=== PATIENT | female | born 1965 | race Caucasian/White ===

== ENCOUNTER → 2016-08-23 | Outpatient (CLI) | payer BC | LOC: MW.CHFP 12:58 | PROVIDERS: ATTEND Physician Assistant | DX: E03.9 Hypothyroidism, unspecified (principal); N89.8 Other specified noninflammatory disorders of vagina | CPT/HCPCS: 36415; 84443; 87480; 87510; 87660; G0145 ==

== ENCOUNTER → 2016-08-25 | Outpatient (CLI) | payer BC ==
--- NOTE | 2016-08-25 10:52 | MY ---
EXAMINATION: Bilateral digital mammography utilizing CAD. HISTORY: Screening exam. Comparison is made to previous studies dated 08/28/2014, 04/30/2013. FINDINGS: Bilateral heterogeneously dense breast tissue. No suspicious calcifications, masses or architectural distortions. No pathologic appearing lymph nodes, no abnormal skin thickening or nip ple inversion. CAD highlighted regions appear normal at this time. IMPRESSION: BI-RADS category I - negative mammogram. Continued screening according to ACR-ACS gu idelines suggested. THE FALSE-NEGATIVE RATE OF MAMMOGRAM IS APPROXIMATELY 10%. MANAGEMENT OF A PALPABLE ABNORMALITY MUS T BE BASED UPON CLINICAL GROUNDS. SENSITIVITY FOR DETECTION OF ABNORMALITIES IN DENSE BREASTS IS LOW . NOTE: A letter will be sent to the patient regarding findings. [facility] -- MAYRA Mckeon [phone] - FAX [phone]
== END ==
LOC: MW.MAM 08:30
PROVIDERS: ATTEND Physician Assistant
DX: Z12.31 Encounter for screening mammogram for malignant neoplasm of breast (principal)
CPT/HCPCS: G0202; G0202-26

== ENCOUNTER → 2016-09-05 | Outpatient (CLI) | payer BC | LOC: MW.CHFP 11:44 | PROVIDERS: ATTEND Student in an Organized Health Care Education/Training Program | DX: R07.9 Chest pain, unspecified (principal) | CPT/HCPCS: 93005 ==

== ENCOUNTER 2018-11-16 06:16 | Day surgery (SDC) | payer BC ==
[~2018-11-16 06:16] MED LIST: Lactated Ringers 1,000 ML IV SCH; ceFAZolin 2 GM in Premix Bag 1 BAG IV ONE
[2018-11-16] MEDS ORDERED: Propofol 200 MG/20 ML SDV ONE ×2 (07:17→07:23)
[2018-11-16] MEDS ORDERED: fentaNYL 100 MCG/2 ML SDV ONE ×3 (07:17→09:59)
[2018-11-16] MEDS ORDERED: Ondansetron 4 MG/2 ML SDV ONE (07:17)
[2018-11-16] MEDS ORDERED: Midazolam 1 MG/ML 2 ML SDV ONE (07:17)
[2018-11-16] MEDS ORDERED: Ketorolac 30 MG/ML SDV ONE (07:18)
[2018-11-16] MEDS ORDERED: Glycopyrrolate 0.2 MG/ML SDV ONE (07:18)
[2018-11-16] MEDS ORDERED: Rocuronium 100 MG/10 ML MDV ONE (07:19)
[2018-11-16] MEDS ORDERED: Bupivacaine 25%/EPINEPHrine/PF 30 ML ONE (07:23)
[2018-11-16] MEDS ORDERED: Morphine 10 MG/ML Syringe ONE (07:25)
[2018-11-16] MEDS ORDERED: Sugammadex Sodium 200 MG/2 ML VIAL ONE (07:28)
[2018-11-16] MEDS ORDERED: Scopolamine 1.5 MG Transdermal Patch TRDERM PRN (07:33)
--- NOTE | 2018-11-16 07:33 | PCM.PREANE ---
Preanesthetic Assessment - Anesthesia/Transfusion/Family Hx Anesthesia History: Prior Anesthesia Reaction Other Type of Anesthesia Reaction Comment: "almost passed out" when tourniquet released after renetta block Family History of Anesthesia Reaction: No Transfusion History: No Prior Transfusion(s) Intubation History: Unknown - Review of Systems General: No Symptoms Pulmonary: No Symptoms Cardiovascular: No Symptoms Gastrointestinal: No Symptoms Neurological: No Symptoms Other: Reports: None - Physical Assessment O2 Sat by Pulse Oximetry: 96 Respiratory Rate: 16 Vital Signs: Last Vital Signs Temp 37.3 C 11/16/18 07:19 Pulse 93 11/16/18 07:19 Resp 16 11/16/18 07:19 BP 132/81 11/16/18 07:19 Pulse Ox 96 11/16/18 07:19 Height: 5 ft 7 in Weight: 88.904 kg ASA Class: 2 Mental Status: Alert & Oriented x3 Airway Class: Mallampati = 2 Dentition: Reports: Normal Dentition Thyro-Mental Finger Breadths: 3 Mouth Opening Finger Breadths: 2 ROM/Head Extension: Full Lungs: Clear to Auscultation, Normal Respiratory Effort Cardiovascular: Regular Rate, Regular Rhythm - Lab Values: Laboratory Last Values Urine HCG, Qual NEGATIVE (NEGATIVE) 11/16/18 06:50 - Allergies Allergies/Adverse Reactions: Allergies Allergy/AdvReac Type Severity Reaction Status Date / Time acetaminophen Allergy Itching Verified 11/16/18 07:18 [From Lorcet (hydrocodone)] hydrocodone Allergy Itching Verified 11/16/18 07:18 [From Lorcet (hydrocodone)] - Blood Blood Available: No - Anesthesia Plan Pre-Op Medication Ordered: None - Acknowledgements Anesthesia Type Planned: General Anesthesia Pt an Appropriate Candidate for the Planned Anesthesia: Yes Alternatives and Risks of Anesthesia Discussed w Pt/Guardian: Yes Pt/Guardian Understands and Agrees with Anesthesia Plan: Yes PreAnesthesia Questionnaire HEENT History: Reports: Other (See Below) Other HEENT History: wears glasses Gastrointestinal History: Reports: Cholelithiasis, GERD 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: Neurological History: Reports: Headaches, Chronic Psychiatric History: Reports: Anxiety, Depression Endocrine/Metabolic History: Reports: Hypothyroidism, Obesity/BMI 30+ - Past Surgical History Female Surgical History: Reports: Section (x1) Musculoskeletal Surgical History: Reports: Ganglion Cyst - SUBSTANCE USE Smoking Status *Q: Never Smoker Recreational Drug Use History: No - HOME MEDS Home Medications: Home Meds Levothyroxine Sodium [Synthroid] 75 mcg PO QAM 11/12/18 [History] Pantoprazole Sodium 40 mg PO QAM 11/12/18 [History] - CURRENT (IN HOUSE) MEDS Current Meds: Current Medications Lactated Ringer's (Ringers, Lactated) 1,000 mls @ 125 mls/hr IV ASDIRECTED OWEN Last Admin: 11/16/18 07:17 Dose: 125 mls/hr Discontinued Medications Fentanyl (Sublimaze) Confirm Administered Dose 100 mcg .ROUTE .STK-MED ONE Stop: 11/16/18 07:18 Fentanyl (Sublimaze) Confirm Administered Dose 100 mcg .ROUTE .STK-MED ONE Stop: 11/16/18 07:26 Glycopyrrolate (Robinul) Confirm Administered Dose 0.2 mg .ROUTE .STK-MED ONE Stop: 11/16/18 07:19 Cefazolin Sodium/Dextrose 2 gm (/ Premix) 50 mls @ 100 mls/hr IV ONETIME ONE Stop: 11/16/18 05:29 Bupivacaine HCl/Epinephrine Bitart (Sensorc Mpf 0.25%-Epi [id number]) Confirm Administered Dose 30 mls @ as directed .ROUTE .STK-MED ONE Stop: 11/16/18 07:24 Ketorolac Tromethamine (Toradol) Confirm Administered Dose 30 mg .ROUTE .STK- MED ONE Stop: 11/16/18 07:19 Midazolam HCl (Versed 1 Mg/Ml) Confirm Administered Dose 2 mg .ROUTE .STK-MED ONE Stop: 11/16/18 07:18 Morphine Sulfate (Morphine) Confirm Administered Dose 10 mg .ROUTE .STK-MED ONE Stop: 11/16/18 07:26 Ondansetron HCl (Zofran) Confirm Administered Dose 4 mg .ROUTE .STK-MED ONE Stop: 11/16/18 07:18 Propofol (Diprivan 20 Ml) Confirm Administered Dose 200 mg .ROUTE .STK-MED ONE Stop: 11/16/18 07:18 Propofol (Diprivan 20 Ml) Confirm Administered Dose 200 mg .ROUTE .STK-MED ONE Stop: 11/16/18 07:24 Rocuronium Kenefic (Zemuron) Confirm Administered Dose 100 mg .ROUTE .STK-MED ONE Stop: 11/16/18 07:20 Sugammadex Sodium (Bridion) Confirm Administered Dose 200 mg .ROUTE .STK-MED ONE Stop: 11/16/18 07:29
[2018-11-16] MEDS ORDERED: Scopolamine 1.5 MG Transdermal Patch ONE (07:34)
[2018-11-16] MEDS ORDERED: Sodium Chloride 0.9% 20 ML ONE (07:45)
[2018-11-16] MEDS ORDERED: ceFAZolin 1 GM Vial ONE (07:45)
[2018-11-16] MEDS ORDERED: Phenylephrine/Normal Saline 100 MCG/ML 10 ML Syringe ONE (09:15)
[2018-11-16] MEDS ORDERED: Octyl 2-Cyanoacrylate 1 Tube ONE (09:23)
[2018-11-16] MEDS ORDERED: Acetaminophen/oxyCODONE 325-5 MG Tab PO PRN (09:38)
--- NOTE | 2018-11-16 09:38 | PCM.OPNOTE ---
- General Post-Op/Procedure Note Date of Surgery/Procedure: 11/16/18 Operative Procedure(s): lap home Findings: severe adherence to surrounding cw chronic cholecystitis; wall is not thickened ; there are stones; [id number] Pre Op Diagnosis: chronic and acute cholecystitis Post-Op Diagnosis: Same Anesthesia Technique: General ET Tube Primary Surgeon: Patrick Campos Pathology: sent Complications: None Condition: Good
[2018-11-16] MEDS ORDERED: Ketorolac 30 MG/ML SDV IVPUSH ONE (09:54)
[2018-11-16] MEDS: fentaNYL 100 MCG/2 ML SDV IVPUSH PRN ×2 (10:00→10:06)
--- NOTE | 2018-11-16 10:22 | PCM.POSTAN ---
POST ANESTHESIA ASSESSMENT - MENTAL STATUS Mental Status: Alert, Oriented - RESPIRATORY Respiratory Status: Respiratory Rate WNL, Airway Patent, O2 Saturation Stable - CARDIOVASCULAR CV Status: Pulse Rate WNL, Blood Pressure Stable - GASTROINTESTINAL GI Status: No Symptoms - PAIN Pain Score: 5 - POST OP HYDRATION Hydration Status: Adequate & Stable - OBSERVATIONS Free Text/Narrative:: No anesthesia problems
--- NOTE | 2018-11-16 12:01 | OR ---
SURGEON: Patrick Campos MD DATE OF PROCEDURE: 11/16/2018 PREOPERATIVE DIAGNOSIS: Acute on chronic cholecystitis. POSTOPERATIVE DIAGNOSIS: Acute on chronic cholecystitis. PROCEDURE PROPOSED: Laparoscopic cholecystectomy. PROCEDURE PERFORMED: Laparoscopic cholecystectomy. PRIMARY SURGEON: Patrick Campos MD. COMPLICATIONS: None. FINDINGS: Gallbladder severely interacting with the surrounding organ, suggests chronicity. Wall is not thickened and there are stones. PROCEDURE NOTE: The patient was taken to the operating room and placed in the supine position. After the intubation of general endotracheal anesthesia, the patient's abdomen was prepped and draped in the usual sterile fashion. Using Admaxim, a 12 mm trocar was placed supraumbilically and then followed with pneumoperitoneum. A 5 mm trocar was placed in the epigastrium and two 5 mm trocars placed in the right upper quadrant. The placement of the last three trocars was done under direct video supervision. Upon gaining entrance to the abdominal cavity, an extensive examination was then performed. The gallbladder was located and identified and retracted to the dome of the liver at the triangle of Calot. The cystic duct was clipped three more times and then using the endoscopic clip, was transected with placement of the endoscopic clip and transection was performed with care, ensuring the posterior prong of the instruments were clearly visualized prior to exercising the procedure. The gallbladder was dissected using electrocautery out of the liver bed and then removed using endoscopic bag through the umbilical site. The gallbladder was removed en bloc and there was no bile spillage and this was then followed with extensive irrigation until the bile was clear from blood and bile. The trocars were then removed under direct video supervision. The 12 mm umbilical site was then closed with deep stitches using 0 Vicryl followed with proximal stitches using 3-0 Vicryl and Dermabond. The other three trocar sites were closed with 3-0 Vicryl followed with approximation of skin with Dermabond. The patient was then awakened and extubated and transferred to the recovery room in hemodynamically stable condition. At the conclusion of the surgery, before closing the abdominal wound, instrument count and sponge count were done and were correct. The patient tolerated the procedure well and there were no intraoperative complications. Dr. Campos was present through the whole procedure. Just before surgery, a timeout was called. The patient was identified and procedure identified and procedure started. Intraoperative findings, as dictated above. LIANS / MODL /[id number]
== END 2018-11-16 13:15 | disposition home or self-care (01) ==
LOC: MW.SDS 06:16
PROVIDERS: ATTEND Surgery
DX: K80.12 Calculus of gallbladder with acute and chronic cholecystitis without obstruction (principal); K21.9 Gastro-esophageal reflux disease without esophagitis; E03.9 Hypothyroidism, unspecified; Z88.5 Allergy status to narcotic agent; Z88.6 Allergy status to analgesic agent; Z79.899 Other long term (current) drug therapy
CPT/HCPCS: 47562; 81025; A9270; J0131; J0690; J1885; J2250; J2270; J2370; J2405; J2704; J3010; J3490; J7120; 00790

== ENCOUNTER 2020-06-30 09:53 | Day surgery (SDC) | payer BC ==
[~2020-06-30 09:53] MED LIST changes: +Glycopyrrolate 0.2 MG/ML SDV ONE; +Lidocaine 2% 5 ML SDV ONE; +Midazolam 1 MG/ML 2 ML SDV ONE; +Propofol 200 MG/20 ML SDV ONE; +Sodium Chloride 0.9% 10 ML SDV IV PRN; +Sodium Chloride 0.9% 10 ML Syringe FLUSH PRN; +Sodium Chloride 0.9% 2.5 ML Syringe FLUSH PRN; -ceFAZolin 2 GM in Premix Bag 1 BAG IV ONE
--- NOTE | 2020-06-30 10:31 | PCM.PREANE ---
Preanesthetic Assessment - Anesthesia/Transfusion/Family Hx Anesthesia History: Prior Anesthesia Reaction Other Type of Anesthesia Reaction Comment: "almost passed out" when tourniquet released after renetta block Family History of Anesthesia Reaction: No Transfusion History: No Prior Transfusion(s) Intubation History: Unknown - Review of Systems General: No Symptoms Pulmonary: No Symptoms Cardiovascular: No Symptoms Gastrointestinal: Abdominal Pain, Diarrhea Neurological: No Symptoms Other: Reports: None - Physical Assessment Vital Signs: Last Vital Signs Temp 36.4 C 06/30/20 10:04 Pulse 94 06/30/20 10:04 Resp 15 06/30/20 10:04 BP 127/82 06/30/20 10:04 Pulse Ox 99 06/30/20 10:04 Height: 5 ft 8 in Weight: 87.997 kg ASA Class: 2 Mental Status: Alert & Oriented x3 Airway Class: Mallampati = 2 Dentition: Reports: Normal Dentition Thyro-Mental Finger Breadths: 3 Mouth Opening Finger Breadths: 3 ROM/Head Extension: Full Lungs: Clear to Auscultation, Normal Respiratory Effort Cardiovascular: Regular Rate, Regular Rhythm - Lab Values: Laboratory Last Values Urine HCG, Qual NEGATIVE (NEGATIVE) 06/30/20 10:00 - Allergies Allergies/Adverse Reactions: Allergies Allergy/AdvReac Type Severity Reaction Status Date / Time acetaminophen Allergy Itching Verified 06/25/20 09:37 [From Lorcet (hydrocodone)] hydrocodone Allergy Itching Verified 06/25/20 09:37 [From Lorcet (hydrocodone)] - Blood Blood Available: No - Anesthesia Plan Pre-Op Medication Ordered: None - Acknowledgements Anesthesia Type Planned: MAC Pt an Appropriate Candidate for the Planned Anesthesia: Yes Alternatives and Risks of Anesthesia Discussed w Pt/Guardian: Yes Pt/Guardian Understands and Agrees with Anesthesia Plan: Yes PreAnesthesia Questionnaire HEENT History: Reports: Other (See Below) Other HEENT History: wears glasses Gastrointestinal History: Reports: Cholelithiasis, GERD 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: Neurological History: Reports: Headaches, Chronic Psychiatric History: Reports: Anxiety, Depression Endocrine/Metabolic History: Reports: Hypothyroidism, Obesity/BMI 30+ Hematologic History: Reports: Anemia, Iron Deficiency Dermatologic History: Reports: Other (See Below) Other Dermatologic History: rosacea - Past Surgical History Head Surgeries/Procedures: Reports: None GI Surgical History: Reports: Cholecystectomy Female Surgical History: Reports: Section Other Female Surgeries/Procedures: x2 Musculoskeletal Surgical History: Reports: Ganglion Cyst Other Musculoskeletal Surgeries/Procedures:: right wrist - SUBSTANCE USE Tobacco Use Status *Q: Never Tobacco User Recreational Drug Use History: No - HOME MEDS Home Medications: Home Meds Levothyroxine Sodium [Synthroid] 75 mcg PO QAM 11/12/18 [History] Pantoprazole Sodium 40 mg PO QAM 11/12/18 [History] - CURRENT (IN HOUSE) MEDS Current Meds: Current Medications Lactated Ringer's (Ringers, Lactated) 1,000 mls @ 125 mls/hr IV ASDIRECTED OWEN Last Admin: 06/30/20 10:20 Dose: 125 mls/hr Documented by: Sodium Chloride (Saline Flush) 2.5 ml FLUSH ASDIRECTED PRN PRN Reason: Keep Vein Open Sodium Chloride (Normal Saline) 10 ml IV ASDIRECTED PRN PRN Reason: IV Use Discontinued Medications Glycopyrrolate (Robinul) Confirm Administered Dose 0.2 mg .ROUTE .STK-MED ONE Stop: 06/30/20 08:18 Lidocaine (Xylocaine-Mpf 2%) Confirm Administered Dose 5 ml .ROUTE .STK-MED ONE Stop: 06/30/20 08:19 Midazolam HCl (Versed 1 Mg/Ml) Confirm Administered Dose 2 mg .ROUTE .STK-MED ONE Stop: 06/30/20 08:18 Propofol (Diprivan 20 Ml) Confirm Administered Dose 400 mg .ROUTE .STK-MED ONE Stop: 06/30/20 08:18
[2020-06-30] MEDS ORDERED: Propofol 200 MG/20 ML SDV ONE (11:42)
--- NOTE | 2020-06-30 13:06 | PCM.POSTAN ---
POST ANESTHESIA ASSESSMENT - MENTAL STATUS Mental Status: Alert, Oriented - VITAL SIGNS Vital Signs: Last Vital Signs Temp 36.7 C 06/30/20 12:28 Pulse 68 06/30/20 12:28 Resp 15 06/30/20 12:28 BP 135/86 06/30/20 12:28 Pulse Ox 100 06/30/20 12:28 - RESPIRATORY Respiratory Status: Respiratory Rate WNL, Airway Patent, O2 Saturation Stable - CARDIOVASCULAR CV Status: Pulse Rate WNL, Blood Pressure Stable - GASTROINTESTINAL GI Status: No Symptoms - PAIN Pain Score: 0 - POST OP HYDRATION Hydration Status: Adequate & Stable - OBSERVATIONS Free Text/Narrative:: No anesthesia problems
--- NOTE | 2020-06-30 13:07 | PCM48HPAN ---
Post Anesthesia Note - EVALUATION WITHIN 48HRS OF ANESTHETIC Vital Signs in Normal Range: Yes Patient Participated in Evaluation: Yes Respiratory Function Stable: Yes Airway Patent: Yes Cardiovascular Function Stable: Yes Hydration Status Stable: Yes Pain Control Satisfactory: Yes Nausea and Vomiting Control Satisfactory: Yes Mental Status Recovered: Yes Vital Signs: Last Vital Signs Temp 36.7 C 06/30/20 12:28 Pulse 68 06/30/20 12:28 Resp 15 06/30/20 12:28 BP 135/86 06/30/20 12:28 Pulse Ox 100 06/30/20 12:28 - COMMENTS/OBSERVATIONS Free Text/Narrative:: No anesthesia problems
--- NOTE | 2020-06-30 13:26 | PCM.OPNOTE ---
- General Post-Op/Procedure Note Date of Surgery/Procedure: 06/30/20 Operative Procedure(s): Diagnostic EGD and colonoscopy Findings: Transverse colon polyp, sigmoid colon polyp x 2, normal egd Pre Op Diagnosis: Abdominal pain Post-Op Diagnosis: Transverse colon polyp, sigmoid colon polyp x 2, normal egd Anesthesia Technique: MAC Primary Surgeon: Marielena Mccord Condition: Stable Free Text/Narrative:: Intake & Output 06/29/20 06/30/20 06/30/20 22:59 06:59 14:59 Intake Total 900 Balance 900
--- NOTE | 2020-07-01 14:57 | OR ---
SURGEON: MARIELENA MCCORD MD DATE OF PROCEDURE: 06/30/2020 PREOPERATIVE DIAGNOSIS: Right-sided abdominal pain. POSTOPERATIVE DIAGNOSES: 1. Normal esophagogastroduodenoscopy. 2. Transverse colon polyp. 3. Sigmoid colon polyp x2. PROCEDURE PERFORMED: Diagnostic esophagogastroduodenoscopy and colonoscopy. PRIMARY SURGEON: Endoscopist: Marielena Mccord MD. ANESTHESIA: MAC. INSTRUMENT USED: Olympus endoscope and colonoscope. EXTENT OF EXAMINATION: To the second portion of duodenum, to the cecum. PREPARATION: Good. LIMITATIONS: None. INDICATIONS FOR EXAMINATION: The patient is a 55-year-old female who presented to clinic with complaints of right-sided abdominal pain. She had been ill this fall and since then has had these symptoms. A preoperative CT scan was performed, which showed no evidence of any acute abdominal pathology. The decision was made to proceed with a diagnostic EGD and colonoscopy. I explained the procedure, expected perioperative course, and the risks. The patient verbalized understanding and wishes to proceed. PROCEDURE IN DETAIL: The patient was brought to the endoscopy suite and placed in a beach chair position. A time-out was completed verifying the patient's name, age, date of , allergies, and procedure to be performed. Monitored anesthesia care was induced. A bite block was placed in the patient's mouth and continuous oxygen was provided via face mask throughout the procedure. After adequate sedation was achieved, a well-lubricated endoscope was placed in the patient's mouth and advanced under direct visualization to the second portion of the duodenum. This appeared normal and a photograph was taken. The scope was then straightened out and withdrawn while examining the color, texture, anatomy, and integrity of the mucosa of the upper GI tract. The duodenum appeared normal. The scope was brought into the stomach and a photograph was taken of the pylorus and GE junction. Both appeared anatomically normal. Biopsies were taken of the gastric antrum, body, and fundus and sent for histologic review and H pylori testing. The gastric mucosa appeared normal with no evidence of ulceration or inflammation. The scope was brought into the distal esophagus and a photograph was taken of the Z-line. This appeared normal. There was no evidence of esophagitis. The remainder of the esophagus appeared free of pathology. The scope was removed and this portion of procedure terminated. A digital rectal exam was performed. This exam was within normal limits. A well-lubricated colonoscope was inserted in the rectum and advanced under direct visualization to the level of the cecum. The cecum was identified by both visual and anatomic landmarks. A photograph was taken of the cecal cap, however, I was unable to retroflex the scope within the cecum due to looping of the scope more proximally. Scope was then fully withdrawn while examining the color, texture, anatomy, and integrity of the mucosa from the cecum to the anal canal. The patient was noted to have small polyps within the colon. There was 1 in the transverse colon, and 2 in the sigmoid colon. These were all removed in piecemeal fashion using a cold biopsy forceps. The scope was then brought into the rectum and retroflexed to allow visualization of the anal canal opening. This appeared normal and a photograph was taken. The scope was straightened out and fully withdrawn. The cecum to anus time was 10 minutes. The patient tolerated the procedure well and was transferred to the PACU in stable condition. ENDOSCOPIC DIAGNOSES: 1. Normal esophagogastroduodenoscopy. 2. Transverse colon polyp. 3. Sigmoid colon polyp x2. RECOMMENDATIONS: Follow up in clinic in 2 weeks. HERMILO CEVALLOS /[id number]
== END 2020-06-30 13:00 | disposition home or self-care (01) ==
LOC: MW.SDS 09:53
PROVIDERS: ATTEND Surgery
DX: K63.5 Polyp of colon (principal); K29.50 Unspecified chronic gastritis without bleeding; K21.9 Gastro-esophageal reflux disease without esophagitis; E03.9 Hypothyroidism, unspecified; D50.9 Iron deficiency anemia, unspecified; E66.9 Obesity, unspecified; Z88.5 Allergy status to narcotic agent; Z79.899 Other long term (current) drug therapy; Z79.890 Hormone replacement therapy; Z98.890 Other specified postprocedural states; Z68.29 Body mass index [BMI] 29.0-29.9, adult
CPT/HCPCS: 43239; 45380; 81025; 88305; 88312; J2001; J2250; J2704; J3490; J7120; 00813

== ENCOUNTER 2021-09-21 06:27 | Day surgery (SDC) | payer BC ==
[~2021-09-21 06:27] MED LIST changes: -Glycopyrrolate 0.2 MG/ML SDV ONE; -Lidocaine 2% 5 ML SDV ONE; -Midazolam 1 MG/ML 2 ML SDV ONE; -Propofol 200 MG/20 ML SDV ONE; -Sodium Chloride 0.9% 10 ML SDV IV PRN; +Sodium Chloride 0.9% 20 ML SDV IV PRN; +ceFAZolin 2 GM in Premix Bag 1 BAG IV ONE
[2021-09-21] MEDS ORDERED: Midazolam 1 MG/ML 2 ML SDV ONE (07:23)
[2021-09-21] MEDS ORDERED: Propofol 200 MG/20 ML SDV ONE ×2 (07:23→08:38)
[2021-09-21] MEDS ORDERED: Naloxone 0.4 MG/ML SDV IVPUSH PRN (07:26)
[2021-09-21] MEDS ORDERED: HYDROmorphone 1 MG/ML Syringe IVPUSH PRN (07:26)
[2021-09-21] MEDS ORDERED: Albuterol 0.083% 2.5 MG/3 ML Neb Soln NEB PRN (07:26)
[2021-09-21] MEDS ORDERED: Ondansetron 4 MG/2 ML SDV IVPUSH PRN (07:26)
[2021-09-21] MEDS ORDERED: Metoclopramide 10 MG/2 ML SDV IVPUSH PRN (07:26)
[2021-09-21] MEDS ORDERED: Iopamidol 408 MG/ML 20 ML SDV ONE (07:27)
[2021-09-21] MEDS ORDERED: Bupivacaine 0.5% 10 ML SDV ONE (07:27)
[2021-09-21] MEDS ORDERED: Heparin Sodium 100 Units/ML 3 ML Syringe ONE (07:27)
[2021-09-21] MEDS ORDERED: Octyl 2-Cyanoacrylate 1 Tube ONE (07:27)
[2021-09-21] MEDS ORDERED: Lidocaine 1% 5 ML VIAL ONE (07:27)
[2021-09-21] MEDS ORDERED: ceFAZolin 1 GM Vial ONE (07:50)
[2021-09-21] MEDS ORDERED: Water For Injection, Sterile 20 ML ONE (07:50)
[2021-09-21] MEDS: fentaNYL 100 MCG/2 ML SDV IVPUSH PRN ×4 (09:26→09:54)
[2021-09-21] MEDS ORDERED: Ketorolac 30 MG/ML SDV ONE (09:35)
== END 2021-09-21 11:16 | disposition home or self-care (01) ==
LOC: MW.SDS 06:27
PROVIDERS: ATTEND Surgery
DX: C50.912 Malignant neoplasm of unspecified site of left female breast (principal); F41.8 Other specified anxiety disorders; E03.9 Hypothyroidism, unspecified; D50.9 Iron deficiency anemia, unspecified; Z91.040 Latex allergy status; Z88.8 Allergy status to other drugs, medicaments and biological substances; Z79.899 Other long term (current) drug therapy; Z79.890 Hormone replacement therapy; Z90.49 Acquired absence of other specified parts of digestive tract; Z98.890 Other specified postprocedural states
CPT/HCPCS: 36561; 71045; 76000; 81025; A9270; C1788; J0690; J1642; J2250; J2704; J3010; J3490; J7120; Q9966

== ENCOUNTER 2023-05-31 20:32 | Emergency (ER) | payer BC ==
[2023-05-31] MEDS ORDERED: Lidocaine 4% 1 each Patch TOP PRN ×2 (21:39→21:45)
[2023-05-31] MEDS ORDERED: Heparin Sodium 100 Units/ML 3 ML Syringe FLUSH STA (21:42)
[2023-05-31 21:58] LABS: APPEARANCE,URINE SLT CLOUDY; BILIRUBIN,URINE NEGATIVE (NEGATIVE); COLOR,URINE YELLOW; GLUCOSE,URINE NEGATIVE (NEGATIVE); KETONES,URINE NEGATIVE (NEGATIVE); LEUKOCYTE ESTERASE,URINE LARGE (NEGATIVE); NITRITE,URINE NEGATIVE (NEGATIVE); OCCULT BLOOD,URINE LARGE (NEGATIVE); PROTEIN,URINE NEGATIVE (NEGATIVE); UROBILINOGEN,URINE 0.2 EU/dL (<2.0)
[2023-05-31 22:11] LABS: BACTERIA,URINE FEW (NEGATIVE); EPITHELIAL CELLS,URINE FEW (NONE-FEW); MUCUS,URINE LIGHT (NONE-MOD); WBC,URINE 30-40 (0-5/HPF)
[2023-05-31] MEDS ORDERED: diphenhydrAMINE 50 MG/ML SDV IVPUSH ONE (22:24)
[2023-05-31] MEDS ORDERED: methylPREDNISolone Sodium Succinate 125 MG/2 ML SDV IVPUSH ONE (22:25)
[2023-05-31] MEDS ORDERED: Iopamidol 755 MG/ML 500 ML Multipack Bottle IVPUSH ONE (23:40)
[2023-06-01] MEDS ORDERED: Cephalexin 500 MG Cap PO ONE (00:16)
[2023-06-01] MEDS ORDERED: Heparin Sodium 100 Units/ML 3 ML Syringe FLUSH STA (01:56)
== END 2023-06-01 02:44 | disposition home or self-care (01) ==
LOC: MW.ED 20:32
DX: M54.50 Low back pain, unspecified (principal); R10.9 Unspecified abdominal pain; E03.9 Hypothyroidism, unspecified; K21.9 Gastro-esophageal reflux disease without esophagitis; Z79.899 Other long term (current) drug therapy; Z88.8 Allergy status to other drugs, medicaments and biological substances; Z91.041 Radiographic dye allergy status
CPT/HCPCS: 74177; 81001; 96374; 96375; 99284; A9270; J1200; J1642; J2930; Q9967